=== PATIENT | male | born 1950 | race Caucasian/White ===

== ENCOUNTER 2018-11-21 09:31 | Observation (INO) | payer BC, MEDICARE ==
--- NOTE | 2018-11-21 09:58 | EDM.PDOC ---
ED HPI GENERAL MEDICAL PROBLEM - General Chief Complaint: Trauma Stated Complaint: VIA [facility] Time Seen by Provider: 11/21/18 09:40 Source of Information: Reports: Patient, EMS History Limitations: Reports: No Limitations - History of Present Illness INITIAL COMMENTS - FREE TEXT/NARRATIVE: 68-year-old male was trying to clean snow off the top of his ice house last evening when he fell injuring his right hip and pelvis. He was able to ambulate around his house with crutches last evening but could not bear any weight on the right leg. This morning he was in too much pain so called the ambulance. No other injury or complaints. Onset: Other (Roughly 12 hours ago, last evening) Location: Reports: Lower Extremity, Right Associated Symptoms: Reports: No Other Symptoms - Related Data Allergies Allergy/AdvReac Type Severity Reaction Status Date / Time No Known Allergies Allergy Verified 01/21/14 07:14 Home Meds: Home Meds Allopurinol [Zyloprim] 150 mg PO DAILY 01/21/14 [History] Multivitamin [Multi-Vitamin Daily] 1 each PO DAILY 01/21/14 [History] Nadolol [Naldol] 80 mg PO DAILY #30 tablet 01/24/14 [Rx] Past Medical History Cardiovascular History: Reports: Hypertension Other Cardiovascular History: Cardiac arrest Other Hematologic History: GI bleed - Infectious Disease History Infectious Disease History: Reports: Measles, Mumps - Past Surgical History Other HEENT Surgeries/Procedures: dentures Social & Family History - Tobacco Use Smoking Status *Q: Never Smoker - Caffeine Use Caffeine Use: Reports: Tea - Recreational Drug Use Recreational Drug Use: No Review of Systems - Review of Systems Review Of Systems: See Below Constitutional: Denies: Fever Respiratory: Reports: No Symptoms Cardiovascular: Reports: No Symptoms GI/Abdominal: Reports: No Symptoms Genitourinary: Reports: No Symptoms Skin: Denies: Bruising Neurological: Denies: Paresthesia ED EXAM, GENERAL - Physical Exam Exam: See Below Exam Limited By: No Limitations General Appearance: Alert, No Apparent Distress (Patient looks uncomfortable but not distressed. He did receive pain control in route via EMS) Eye Exam: Bilateral Eye: EOMI Neck: Supple Respiratory/Chest: No Respiratory Distress, Lungs Clear Cardiovascular: Regular Rate, Rhythm GI/Abdominal: Soft, Non-Tender, Distended Extremities: Other (Extremely painful in the right hip to any passive range of motion, with focal tenderness to palpation but no crepitus or significant deformity) Neurological: Alert, Oriented Skin Exam: Warm, Dry, Other (Posterior right hip and buttock area has significant ecchymosis and bruising, swelling typical of a hematoma) Course - Vital Signs Last Recorded V/S: Last Vital Signs Temp 97.6 F 11/21/18 13:56 Pulse 72 11/21/18 13:56 Resp 16 11/21/18 13:56 BP 148/42 H 11/21/18 13:56 Pulse Ox 99 11/21/18 13:56 - Orders/Labs/Meds Orders: Medication Orders Acetaminophen (Tylenol) 650 mg PO Q4H PRN PRN Reason: Pain (Mild 1-3)/fever Allopurinol (Zyloprim) 150 mg PO DAILY [facility] Morphine Sulfate (Morphine) 2 mg IVPUSH Q2H PRN PRN Reason: Pain (severe 7-10) Nadolol (Naldol) 80 mg PO DAILY [facility] Ondansetron HCl (Zofran Odt) 4 mg PO Q6H PRN PRN Reason: Nausea able to take PO Oxycodone HCl (Oxycodone) 5 mg PO Q4H PRN PRN Reason: Pain (moderate 4-6) Polyethylene Glycol (Miralax) 17 gm PO DAILY PRN PRN Reason: Constipation Senna/Docusate Sodium (Senna Plus) 1 tab PO BID PRN PRN Reason: Constipation Labs: Laboratory Tests 11/21/18 11/21/18 11/21/18 Range/Units 10:42 10:42 11:33 WBC 5.9 (4.5-11.0) K/uL RBC 2.05 L (4.30-5.90) M/uL Hgb 8.1 L D (12.0-15.0) g/dL Hct 23.3 L (40.0-54.0) % MCV 114 H (80-98) fL MCH 40 H (27-31) pg MCHC 35 (32-36) % Plt Count 52 L (150-400) K/uL Neut % (Auto) 57 (36-66) % Lymph % (Auto) 23 L (24-44) % [place] % (Auto) 15 H (2-6) % Eos % (Auto) 5 H (2-4) % Baso % (Auto) 1 (0-1) % PT (9.5-12.0) sec INR (0.80-1.20) Sodium 131 L (140-148) mmol/L Potassium 3.9 (3.6-5.2) mmol/L Chloride 100 (100-108) mmol/L Carbon Dioxide 22 (21-32) mmol/L Anion Gap 12.9 (5.0-14.0) mmol/L BUN 14 (7-18) mg/dL Creatinine 1.3 (0.8-1.3) mg/dL Est Cr Clr Drug Dosing 48.40 mL/min Estimated GFR (MDRD) 55 L (>60) Glucose 132 H (74-106) mg/dL Calcium 8.0 L D (8.5-10.1) mg/dL Total Bilirubin 3.2 H (0.2-1.0) mg/dL Direct Bilirubin 1.93 H (0.0-0.2) mg/dL Indirect Bilirubin 1.27 AST 37 (15-37) U/L ALT 24 (12-78) U/L Alkaline Phosphatase 127 H (46-116) U/L Total Protein 6.7 (6.4-8.2) g/dL Albumin 1.6 L (3.4-5.0) g/dL Globulin 5.1 H (2.3-3.5) g/dL Albumin/Globulin Ratio 0.3 L (1.2-2.2) 11/21/18 Range/Units 11:35 WBC (4.5-11.0) K/uL RBC (4.30-5.90) M/uL Hgb (12.0-15.0) g/dL Hct (40.0-54.0) % MCV (80-98) fL MCH (27-31) pg MCHC (32-36) % Plt Count (150-400) K/uL Neut % (Auto) (36-66) % Lymph % (Auto) (24-44) % [place] % (Auto) (2-6) % Eos % (Auto) (2-4) % Baso % (Auto) (0-1) % PT 16.7 H (9.5-12.0) sec INR 1.56 H (0.80-1.20) Sodium (140-148) mmol/L Potassium (3.6-5.2) mmol/L Chloride (100-108) mmol/L Carbon Dioxide (21-32) mmol/L Anion Gap (5.0-14.0) mmol/L BUN (7-18) mg/dL Creatinine (0.8-1.3) mg/dL Est Cr Clr Drug Dosing mL/min Estimated GFR (MDRD) (>60) Glucose (74-106) mg/dL Calcium (8.5-10.1) mg/dL Total Bilirubin (0.2-1.0) mg/dL Direct Bilirubin (0.0-0.2) mg/dL Indirect Bilirubin AST (15-37) U/L ALT (12-78) U/L Alkaline Phosphatase (46-116) U/L Total Protein (6.4-8.2) g/dL Albumin (3.4-5.0) g/dL Globulin (2.3-3.5) g/dL Albumin/Globulin Ratio (1.2-2.2) Meds: Medications Generic Name Dose Route Start Last Admin Trade Name Freq PRN Reason Stop Dose Admin Acetaminophen 650 mg 11/21/18 13:19 Tylenol PO Q4H PRN Pain (Mild 1-3)/fever Allopurinol 150 mg 11/22/18 09:00 Zyloprim PO DAILY [facility] Morphine Sulfate 2 mg 11/21/18 13:19 Morphine IVPUSH Q2H PRN Pain (severe 7-10) Nadolol 80 mg 11/22/18 09:00 Naldol PO DAILY [facility] Ondansetron HCl 4 mg 11/21/18 13:19 Zofran Odt PO Q6H PRN Nausea able to take PO Oxycodone HCl 5 mg 11/21/18 13:19 Oxycodone PO Q4H PRN Pain (moderate 4-6) Polyethylene Glycol 17 gm 11/21/18 13:19 Miralax PO DAILY PRN Constipation Senna/Docusate Sodium 1 tab 11/21/18 13:19 Senna Plus PO BID PRN Constipation Discontinued Medications Generic Name Dose Route Start Last Admin Trade Name Freq PRN Reason Stop Dose Admin Influenza Virus Vaccine 180 mcg 11/21/18 10:00 11/21/18 10:05 Fluzone High-Dose 2018-19 Syringe IM 11/21/18 10:01 180 mcg ONETIME ONE Administration - Re-Assessments/Exams Free Text/Narrative Re-Assessment/Exam: 11/21/18 09:57 CT of the pelvis and right hip were obtained. 11/21/18 11:34 CT shows significant contusion and a small hematoma over the right buttock and hip area. No fracture. Hemoglobin returned only 8.1. This is compared to a level near 12 10 months ago. There is also ascites on the CT scan, which correlates with his history of cirrhosis. He admits that he still drinks but only "one or 2 beers a day". Discussed his condition with Dr. Mcmillan, he agreed to interview the patient to consider hospitalization for pain control, rehabilitation and possible anemia workup. Departure - Departure Time of Disposition: 13:59 Disposition: Admitted As Inpatient 65 Condition: Fair Clinical Impression: Cirrhosis of liver, Anemia due to blood loss Hematoma of right lower extremity Qualifiers: Encounter type: initial encounter Qualified Code(s): S80.11XA - Contusion of right lower leg, initial encounter - Discharge Information
--- NOTE | 2018-11-21 11:20 | CT ---
Pelvis wo Cont CLINICAL HISTORY: Fall, hematoma Technique: Axial tomographic images are obtained through the pelvis with no contrast enhancement. Auto dosage reduction and iterative reconstruction techniques employed. FINDINGS: No fracture is identified within the hips or pelvis. There is some mild acetabular spurring. Articular surfaces are smooth. There is ecchymosis in the right lateral and posterior subcutaneous tissues. There is some thickening of the gluteus which is likely related to hematoma. Patient has a moderate amount of fluid in the pelvis and lower abdomen which is likely ascites IMPRESSION: No pelvic or hip fracture identified Right posterior lateral ecchymosis and hematoma Moderate abdominal pelvic ascites
--- NOTE | 2018-11-21 12:21 | PCM.HP ---
H&P History of Present Illness - General Date of Service: 11/21/18 Admit Problem/Dx: Admission Diagnosis/Problem Admission Diagnosis/Problem Hematoma of right lower extremity Source of Information: Patient, Provider History Limitations: Reports: No Limitations - History of Present Illness Initial Comments - Free Text/Narative: Leroy presents to the emergency room with severe right buttocks pain. He reports that he slipped and fell yesterday while he was shoveling snow and landed on his right buttocks. Initially he had moderate sharp pain in the right buttocks and hip area but was able to crawl to the house and with the help of his brother get up to the chair. He didn't take anything to make the pain better. Any sort of movement or pressure on the posterolateral part of his hip causes pain. He was able to get around using crutches last night but when he woke up this morning his pain was so severe that he could not get out of bed so he called an ambulance. He is not aware of any other injuries from the fall and does not endorse back pain, chest pain, abdominal pain or other joint pain. He did not hit his head. No complaints of shortness of breath. No fevers. he does report abdominal distention for about 2 months as well as lower extremity edema for 2 months after an episode of nausea with vomiting and diarrhea. Workup in the emergency room revealed bruising and hematoma involving the right gluteus muscle. There is no evidence for hip or pelvic fracture. Patient is not able to bear any weight and is not safe for outpatient management at this time. Also noted during the emergency room workup was cirrhosis with ascites as well as elevated bilirubin and anemia with a hemoglobin of 8.1. - Related Data Allergies/Adverse Reactions: Allergies Allergy/AdvReac Type Severity Reaction Status Date / Time No Known Allergies Allergy Verified 01/21/14 07:14 Home Medications: Home Meds Allopurinol [Zyloprim] 150 mg PO DAILY 01/21/14 [History] Multivitamin [Multi-Vitamin Daily] 1 each PO DAILY 01/21/14 [History] Nadolol [Naldol] 80 mg PO DAILY #30 tablet 01/24/14 [Rx] Past Medical History Cardiovascular History: Reports: Hypertension Other Cardiovascular History: Cardiac arrest Other Hematologic History: GI bleed - Infectious Disease History Infectious Disease History: Reports: Measles, Mumps - Past Surgical History Other HEENT Surgeries/Procedures: dentures Social & Family History - Family History GI: Denies: Cirrhosis - Tobacco Use Smoking Status *Q: Never Smoker - Caffeine Use Caffeine Use: Reports: Tea - Alcohol Use Alcohol Use History: Yes Days Per Week of Alcohol Use: 1 Days Per Week of Alcohol Use Comment: 1 Number of Drinks Per Day: 1 Total Drinks Per Week: 1 - Recreational Drug Use Recreational Drug Use: No H&P Review of Systems - Review of Systems: Review Of Systems: See Below Free Text/Narrative: A complete 12 point review of systems was obtained. Pertinent positives and negatives are noted in the history of present illness. All other systems were reviewed and were negative except as noted. Exam - Exam Exam: See Below - Vital Signs Vital Signs: Last Vital Signs Temp 36.7 C 11/21/18 09:32 Pulse 76 11/21/18 09:32 Resp 16 11/21/18 09:32 BP 164/73 H 11/21/18 09:32 Pulse Ox 95 11/21/18 09:32 Weight: 72.575 kg - Exam Quality Assessment: No: Supplemental Oxygen General: Alert, Oriented, Cooperative. No: Mild Distress HEENT: Conjunctiva Clear, Mucosa Moist & [place]. No: Scleral Icterus Neck: Supple, Trachea Midline. No: Lymphadenopathy Lungs: Clear to Auscultation, Normal Respiratory Effort Cardiovascular: Regular Rate, Regular Rhythm. No: Systolic Murmur GI/Abdominal Exam: Normal Bowel Sounds, Soft, Non-Tender, No Mass, Distended. No: Hepatomegaly (Male) Exam: Circumcised, Other (one testicle ). No: Scrotal Swelling, Testicular Mass Back Exam: No: Full Range of Motion Extremities: Pedal Edema. No: Increased Warmth Skin: Warm, Dry, Ecchymosis (right buttocks ) Neuro Extensive - Mental Status: Alert, Oriented x3, Nl Response to Commands Neuro Extensive - Motor, Sensory, Reflexes: CN II-XII Intact. No: Dysarthria, Abnormal Motor, Tremor Psychiatric: Alert, Normal Affect - Patient Data Lab Results Last 24 hrs: Laboratory Results - last 24 hr 11/21/18 11/21/18 11/21/18 Range/Units 10:42 10:42 11:33 WBC 5.9 (4.5-11.0) K/uL RBC 2.05 L (4.30-5.90) M/uL Hgb 8.1 L D (12.0-15.0) g/dL Hct 23.3 L (40.0-54.0) % MCV 114 H (80-98) fL MCH 40 H (27-31) pg MCHC 35 (32-36) % Plt Count 52 L (150-400) K/uL Neut % (Auto) 57 (36-66) % Lymph % (Auto) 23 L (24-44) % [place] % (Auto) 15 H (2-6) % Eos % (Auto) 5 H (2-4) % Baso % (Auto) 1 (0-1) % PT (9.5-12.0) sec INR (0.80-1.20) Sodium 131 L (140-148) mmol/L Potassium 3.9 (3.6-5.2) mmol/L Chloride 100 (100-108) mmol/L Carbon Dioxide 22 (21-32) mmol/L Anion Gap 12.9 (5.0-14.0) mmol/L BUN 14 (7-18) mg/dL Creatinine 1.3 (0.8-1.3) mg/dL Est Cr Clr Drug Dosing 48.40 mL/min Estimated GFR (MDRD) 55 L (>60) Glucose 132 H (74-106) mg/dL Calcium 8.0 L D (8.5-10.1) mg/dL Total Bilirubin 3.2 H (0.2-1.0) mg/dL Direct Bilirubin 1.93 H (0.0-0.2) mg/dL Indirect Bilirubin 1.27 AST 37 (15-37) U/L ALT 24 (12-78) U/L Alkaline Phosphatase 127 H (46-116) U/L Total Protein 6.7 (6.4-8.2) g/dL Albumin 1.6 L (3.4-5.0) g/dL Globulin 5.1 H (2.3-3.5) g/dL Albumin/Globulin Ratio 0.3 L (1.2-2.2) 11/21/18 Range/Units 11:35 WBC (4.5-11.0) K/uL RBC (4.30-5.90) M/uL Hgb (12.0-15.0) g/dL Hct (40.0-54.0) % MCV (80-98) fL MCH (27-31) pg MCHC (32-36) % Plt Count (150-400) K/uL Neut % (Auto) (36-66) % Lymph % (Auto) (24-44) % [place] % (Auto) (2-6) % Eos % (Auto) (2-4) % Baso % (Auto) (0-1) % PT 16.7 H (9.5-12.0) sec INR 1.56 H (0.80-1.20) Sodium (140-148) mmol/L Potassium (3.6-5.2) mmol/L Chloride (100-108) mmol/L Carbon Dioxide (21-32) mmol/L Anion Gap (5.0-14.0) mmol/L BUN (7-18) mg/dL Creatinine (0.8-1.3) mg/dL Est Cr Clr Drug Dosing mL/min Estimated GFR (MDRD) (>60) Glucose (74-106) mg/dL Calcium (8.5-10.1) mg/dL Total Bilirubin (0.2-1.0) mg/dL Direct Bilirubin (0.0-0.2) mg/dL Indirect Bilirubin AST (15-37) U/L ALT (12-78) U/L Alkaline Phosphatase (46-116) U/L Total Protein (6.4-8.2) g/dL Albumin (3.4-5.0) g/dL Globulin (2.3-3.5) g/dL Albumin/Globulin Ratio (1.2-2.2) Result Diagrams: 11/21/18 10:42 11/21/18 10:42 Imaging Impressions Last 24 hrs: CT pelvis - images personally reviewed - there is swelling and hematoma present in the right gluteus. No pelvic or hip fracture. *Q Meaningful Use (ADM) - VTE *Q VTE Pharmacological Contraindications *Q: Thrombocytopenia - VTE Risk Assess *Q Each Risk Factor Represents 1 Point: Swollen Legs, Current, Obesity ( BMI > 25 kg/m2) Total Score 1 Point Risk Factors: 2 Each Risk Factor Represents 2 Points: Age 60 - 74 Years Total Score 2 Point Risk Factors: 2 Each Risk Factor Represents 3 Points: None Total Score 3 Point Risk Factors: 0 Each Risk Factor Represents 5 Points: None Total Score 5 Point Risk Factors: 0 Venous Thromboembolism Risk Factor Score *Q: 4 - Problem List (1) Hematoma of right lower extremity SNOMED Code(s): 390592798 ICD Code: S80.11XA - CONTUSION OF RIGHT LOWER LEG, INITIAL ENCOUNTER Status : Acute Current Visit: Yes Qualifiers: Encounter type: initial encounter Qualified Code(s): S80.11XA - Contusion of right lower leg, initial encounter (2) Macrocytic anemia SNOMED Code(s): 46167110 ICD Code: D53.9 - NUTRITIONAL ANEMIA, UNSPECIFIED Status: Acute Current Visit: Yes (3) Cirrhosis of liver SNOMED Code(s): 94336359 ICD Code: K74.60 - UNSPECIFIED CIRRHOSIS OF LIVER Status: Chronic Priority: Medium Current Visit: Yes Problem List Initiated/Reviewed/Updated: Yes Orders Last 24hrs: Active Orders 24 hr Category Date Time Status Patient Status Manage Transfer [TRANSFER] Routine ADT 11/21/18 12:08 Ordered Resuscitation Status Routine Resus Stat 11/21/18 12:09 Ordered Assessment/Plan Comment:: ASSESSMENT AND PLAN - Fall with right hip pain/gluteus hematoma - mechanical fall, no other injuries. No fracture but CT did show hematoma of gluteus. Unable to bear weight and not safe for outpatient management. Lives alone and has 7 steps into the house. -alternate heat and ice -acetaminophen for mild pain -oxycodone for moderate pain -PT in the morning Macrocytic anemia - I suspect this is related to anemia of chronic disease with cirrhosis but occult GI bleeding possible. patient does not report any melena and has not had hematemesis or hematochezia. Most recent level was about 3 years ago and it was 11. patient does not seem to have any symptoms from the low hemoglobin suggesting it was a slow decline. -Check iron, ferritin, B-12 -Repeat hemoglobin in the morning Cirrhosis - likely secondary to alcohol use. Patient has a history of consistent and fairly heavy use but has been cutting down. He noticed abdominal distention about 2 months ago after an episode of what he calls the "flu". This was described as an episode of vomiting and diarrhea that lasted several days. INR is elevated. He has moderate ascites and thrombocytopenia. He would benefit from diuretics once he is moving better. -hepatitis panel -Consider diuretics once he is moving better Maintenance issues - - DVT prophylaxis - mechanical with thrombocytopenia - GI prophylaxis - PPI - Nutrition - low sodium - [place] catheter - not indicated CODE STATUS - full code Admission justification - patient will be referred to observation status for pain control Disposition - I would anticipate discharge to home after the hospital stay Primary care physician - Gaurav Mcmillan M.D.
[2018-11-21] MEDS ORDERED: Polyethylene Glycol 3350 Powder 17 GM Packet PO PRN (13:19)
[2018-11-21] MEDS ORDERED: Ondansetron 4 MG Tab.DIS PO PRN (13:19)
[2018-11-21] MEDS ORDERED: oxyCODONE 5 MG Tab PO PRN (13:19)
[2018-11-21] MEDS ORDERED: Morphine 2 MG/ML Syringe IVPUSH PRN (13:19)
[2018-11-21] MEDS: Acetaminophen 325 MG Tab PO PRN (16:14)
[2018-11-22] MEDS: Acetaminophen 325 MG Tab PO PRN ×2 (08:21→20:18)
[2018-11-22] MEDS: Allopurinol 300 MG Tab PO SCH (08:22)
--- NOTE | 2018-11-22 11:43 | PCM.PN ---
- General Info Date of Service: 11/22/18 Subjective Update: There were no acute events overnight. The patient continues to report moderately severe pain at the right buttocks and thigh. He thinks the pain is a little better today but he is not moving quite as well. Bruise has enlarged and extended distally some. Hemoglobin did dip down to 7.4 and he will be receiving 1 unit of blood via transfusion. No change in abdominal distention or lower extremity edema. Iron slightly low and significant elevation of ferritin. Functional Status: Reports: Tolerating Diet, Ambulating - Review of Systems Musculoskeletal: Reports: Leg Pain Skin: Reports: Bruising - Patient Data Vitals - Most Recent: Last Vital Signs Temp 36.1 C 11/22/18 11:10 Pulse 67 11/22/18 11:10 Resp 16 11/22/18 11:10 BP 122/47 L 11/22/18 11:10 Pulse Ox 97 11/22/18 11:00 Weight - Most Recent: 72.575 kg I&O - Last 24 Hours: Intake & Output 11/21/18 11/22/18 11/22/18 22:59 06:59 14:59 Intake Total 240 480 Balance 240 480 Lab Results Last 24 Hours: Laboratory Results - last 24 hr 11/21/18 11/21/18 11/22/18 Range/Units 11:33 11:35 05:07 WBC (4.5-11.0) K/uL RBC (4.30-5.90) M/uL Hgb (12.0-15.0) g/dL Hct (40.0-54.0) % MCV (80-98) fL MCH (27-31) pg MCHC (32-36) % Plt Count (150-400) K/uL PT 16.7 H (9.5-12.0) sec INR 1.56 H (0.80-1.20) Iron 63 L (65-175) ug/dL TIBC 124 L (250-450) ug/dl % Saturation 51 (20-55) % Ferritin (8-388) ng/ml Total Bilirubin 3.2 H (0.2-1.0) mg/dL Direct Bilirubin 1.93 H (0.0-0.2) mg/dL Indirect Bilirubin 1.27 AST 37 (15-37) U/L ALT 24 (12-78) U/L Alkaline Phosphatase 127 H (46-116) U/L Total Protein 6.7 (6.4-8.2) g/dL Albumin 1.6 L (3.4-5.0) g/dL Globulin 5.1 H (2.3-3.5) g/dL Albumin/Globulin Ratio 0.3 L (1.2-2.2) Vitamin B12 (193-986) pg/ml Blood Type Gel Antibody Screen Crossmatch 11/22/18 11/22/18 11/22/18 Range/Units 05:07 05:11 08:55 WBC 5.4 (4.5-11.0) K/uL RBC 1.88 L (4.30-5.90) M/uL Hgb 7.4 L (12.0-15.0) g/dL Hct 21.6 L (40.0-54.0) % MCV 115 H (80-98) fL MCH 39 H (27-31) pg MCHC 34 (32-36) % Plt Count 48 L (150-400) K/uL PT (9.5-12.0) sec INR (0.80-1.20) Iron (65-175) ug/dL TIBC (250-450) ug/dl % Saturation (20-55) % Ferritin 1453 H (8-388) ng/ml Total Bilirubin (0.2-1.0) mg/dL Direct Bilirubin (0.0-0.2) mg/dL Indirect Bilirubin AST (15-37) U/L ALT (12-78) U/L Alkaline Phosphatase (46-116) U/L Total Protein (6.4-8.2) g/dL Albumin (3.4-5.0) g/dL Globulin (2.3-3.5) g/dL Albumin/Globulin Ratio (1.2-2.2) Vitamin B12 1521 H (193-986) pg/ml Blood Type O POSITIVE Gel Antibody Screen Negative Crossmatch See Detail Med Orders - Current: Current Medications Acetaminophen (Tylenol) 650 mg PO Q4H PRN PRN Reason: Pain (Mild 1-3)/fever Last Admin: 11/22/18 08:21 Dose: 650 mg Allopurinol (Zyloprim) 150 mg PO DAILY [facility] Last Admin: 11/22/18 08:22 Dose: 150 mg Morphine Sulfate (Morphine) 2 mg IVPUSH Q2H PRN PRN Reason: Pain (severe 7-10) Nadolol (Naldol) 80 mg PO DAILY [facility]IA Last Admin: 11/22/18 08:22 Dose: 80 mg Ondansetron HCl (Zofran Odt) 4 mg PO Q6H PRN PRN Reason: Nausea able to take PO Oxycodone HCl (Oxycodone) 5 mg PO Q4H PRN PRN Reason: Pain (moderate 4-6) Polyethylene Glycol (Miralax) 17 gm PO DAILY PRN PRN Reason: Constipation Senna/Docusate Sodium (Senna Plus) 1 tab PO BID PRN PRN Reason: Constipation Discontinued Medications Influenza Virus Vaccine (Fluzone High-Dose Syringe) 180 mcg IM ONETIME ONE Stop: 11/21/18 10:01 Last Admin: 11/21/18 10:05 Dose: 180 mcg - Exam Quality Assessment: No: Supplemental Oxygen General: Alert, Oriented, Cooperative, No Acute Distress Lungs: Normal Respiratory Effort GI/Abdominal Exam: Soft, Distended Extremities: Pedal Edema Skin: Warm, Dry, Ecchymosis (large bruise right lateral and posterior hip ) Psy/Mental Status: Alert, Normal Affect - Problem List & Annotations (1) Hematoma of right lower extremity SNOMED Code(s): 103125139 Code(s): S80.11XA - CONTUSION OF RIGHT LOWER LEG, INITIAL ENCOUNTER Status : Acute Current Visit: Yes Qualifiers: Encounter type: initial encounter Qualified Code(s): S80.11XA - Contusion of right lower leg, initial encounter (2) Macrocytic anemia SNOMED Code(s): 67418203 Code(s): D53.9 - NUTRITIONAL ANEMIA, UNSPECIFIED Status: Acute Current Visit: Yes (3) Cirrhosis of liver SNOMED Code(s): 15036815 Code(s): K74.60 - UNSPECIFIED CIRRHOSIS OF LIVER Status: Chronic Priority : Medium Current Visit: Yes - Problem List Review Problem List Initiated/Reviewed/Updated: Yes - My Orders Last 24 Hours: My Active Orders 11/21/18 12:09 Resuscitation Status Routine 11/21/18 13:19 Patient Status [ADT] Routine Antiembolic Devices [RC] .Routine Cooling Warming Measures [RC] ASDIRECTED Intake and Output [RC] QSHIFT Notify Provider Vital Signs [RC] ASDIRECTED Oxygen Therapy [RC] PRN Up With Assistance [RC] ASDIRECTED VTE/DVT Education [RC] Per Unit Routine Vital Signs [RC] Q4H PT Evaluation and Treatment [CONS] Routine Acetaminophen [Tylenol] 650 mg PO Q4H PRN Docusate Sodium/Sennosides [Senna Plus] 1 tab PO BID PRN Morphine 2 mg IVPUSH Q2H PRN Ondansetron [Zofran ODT] 4 mg PO Q6H PRN Polyethylene Glycol 3350 [MiraLAX] 17 gm PO DAILY PRN oxyCODONE 5 mg PO Q4H PRN Antiembolic Hose [OM.PC] Per Unit Routine Heat Therapy [OM.PC] Routine Ice Therapy [OM.PC] Routine Pressure Reduction Mattress [OM.PC] Routine VTE Pharmacological Contraindications [AST] Per Unit Routine 11/21/18 Lunch 2 Gram Sodium Diet [DIET] 11/22/18 05:07 HEPATITIS PANEL (4) AM 11/22/18 08:44 Transfuse Red Blood Cells [COMM] Routine 11/22/18 09:00 Allopurinol [Zyloprim] 150 mg PO DAILY Nadolol [Naldol] 80 mg PO DAILY 11/23/18 05:00 CBC W/O DIFF,HEMOGRAM [HEME] Timed (1) COMPREHENSIVE METABOLIC PN,CMP [CHEM] Timed - Plan Plan:: ASSESSMENT AND PLAN - Fall with right hip pain/gluteus hematoma - mechanical fall, no other injuries. Pain a little better but still not moving great. Patient does not have any interest in going to the care home. He was counseled this may take a couple of weeks to resolve. -alternate heat and ice -acetaminophen for mild pain -oxycodone for moderate pain -Physical therapy Macrocytic anemia, anemia of chronic disease - B-12 level normal. Ferritin significantly elevated. Iron levels slightly low. I believe the low hemoglobin is related to his chronic liver disease. He did receive 1 unit of blood today. Still no evidence for bleeding. -Repeat hemoglobin in the morning Cirrhosis - likely secondary to chronic alcohol use. He would benefit from diuretics but is unable to move well enough and starting them now would likely cause a significant increase in his are ready troubling pain. -hepatitis panel pending -Consider diuretics once he is moving better Maintenance issues - - DVT prophylaxis - mechanical with thrombocytopenia - GI prophylaxis - PPI - Nutrition - low sodium - [place] catheter - not indicated CODE STATUS - full code Admission justification - patient will be referred to observation status for pain control Disposition - I would anticipate discharge to home with home care after the hospital stay Primary care physician - Gaurav Mcmillan M.D.
[2018-11-23 07:23] VITALS: BP 109/49
[2018-11-23] MEDS ORDERED: Potassium Chloride 20 MEQ Tab.ER PO ONE (09:00)
[2018-11-23] MEDS: Allopurinol 300 MG Tab PO SCH (09:03)
[2018-11-23 09:18] LABS: HBSAG SCREEN Negative (Negative); HEP A AB, IGM Negative (Negative); HEP B CORE AB, IGM Negative (Negative); HEP C VIRUS AB 0.1 s/co ratio (0.0-0.9)
--- NOTE | 2018-11-23 10:47 | PCM.DCSUM1 ---
Discharge Summary - Hospital Course Brief History: 68-year-old male with history of cirrhosis who presented with severe right buttocks pain/hip pain after a fall. Workup in the emergency room revealed a large right buttocks hematoma and he was admitted for pain control. Diagnosis: Stroke: No - Discharge Data Discharge Date: 11/23/18 Discharge Disposition: Home, W Home Health Agency 06 Condition: Good - Discharge Diagnosis/Problem(s) (1) Hematoma of right lower extremity SNOMED Code(s): 997823711 ICD Code: S80.11XA - CONTUSION OF RIGHT LOWER LEG, INITIAL ENCOUNTER Status : Acute Qualifiers: Encounter type: initial encounter Qualified Code(s): S80.11XA - Contusion of right lower leg, initial encounter (2) Macrocytic anemia SNOMED Code(s): 33581932 ICD Code: D53.9 - NUTRITIONAL ANEMIA, UNSPECIFIED Status: Acute (3) Cirrhosis of liver SNOMED Code(s): 44306274 ICD Code: K74.60 - UNSPECIFIED CIRRHOSIS OF LIVER Status: Chronic Priority: Medium (4) Hypokalemia SNOMED Code(s): 52299429 ICD Code: E87.6 - HYPOKALEMIA Status: Acute - Patient Summary/Data Consults: Consultations 11/21/18 13:19 PT Evaluation and Treatment [CONS] Routine Please Evaluate and Treat. PT Reason for Consult: Ambulation Special Instructions: right buttocks hematoma This query below is only for informational purposes and is not editable. Labs Pending at D/C: Hepatitis panel Hospital Course: Leroy presented to the emergency room with right buttocks and hip pain after a fall the day before presentation. Workup in the emergency room included laboratory studies and a CT scan. Laboratory studies were remarkable for anemia with a hemoglobin of 8.1 as well as elevated bilirubin. The CT scan did not show evidence for fracture of the hip or pelvis but did show a hematoma in the right gluteus. CT scan also showed moderate ascites. Patient was admitted to the hospital for pain management and physical therapy because he was unable to bear weight due to the severity of the pain. Started him on acetaminophen and oxycodone to help with the pain as well as heat and ice. He worked with physical therapy the morning after admission though was not able to do much because of the severity of the pain. His hemoglobin was also noted to have dropped the morning after admission and he did receive 1 unit of blood via transfusion for hemoglobin of 7.4. Throughout the next 24 hours he made significant improvement with regards to pain control and ability to get in and out of bed as well as ambulate. His pain has been well-controlled using acetaminophen for the most part with only rare use of oxycodone. On the morning of discharge she worked with physical therapy and was fairly easily able to do 7 stairs, which he would be required to do to get into his house. He feels comfortable with this level of pain control and thinks that he can manage at home at this time. He was agreeable to home health for nursing and physical therapy assistance. As mentioned the CT scan did show moderate ascites. The patient also had moderate lower extremity edema. He has a known history of cirrhosis but things seem to be worsening. I did not initiate diuretics during the hospital stay because of his greatly impaired mobility. We did discuss cirrhosis and the importance of alcohol abstinence. I strongly suspect that his cirrhosis is related to long-standing and fairly heavy alcohol use though he has been drinking less recently. Did send off labs for hepatitis panel but these are pending at the time of discharge. Ferritin level was quite high at 1400 and iron level on the low side of normal which fits with anemia of chronic disease. I did send him home with a prescription for diuretics including furosemide and spironolactone which she will start tomorrow. I encouraged early follow-up and he may need a gastroenterology referral for assistance in managing his chronic liver disease. I strongly encouraged him to avoid all alcohol. - Patient Instructions Diet: Regular Diet as Tolerated Activity: As Tolerated Driving: Do Not Drive (if taking pain pills ) Showering/Bathing: May Shower Notify Provider of: Fever, Increased Pain, Nausea and/or Vomiting Other/Special Instructions: 1. You were in the hospital for observation and pain control after a fall resulted in a hematoma of your right thigh and buttocks. To help control the pain at home you should take acetaminophen 650 mg every 4 hours as needed. Please do not exceed 5 doses in a 24-hour period. If you have more than mild pain I have provided a prescription for oxycodone which you can use every 4 hours as needed for moderate or severe pain. You should continue to use the heating pad every 2-4 hours to help reduce the discomfort with the hematoma. 2. The CT of your pelvis revealed that you have fluid inside your abdomen called ascites. This ascites is present because of cirrhosis (scarring of the liver). I believe the low hemoglobin level is also related to chronic inflammation because of the cirrhosis. To help reduce the swelling I would recommend that you start taking furosemide 20 mg once daily and spironolactone 25 mg once daily. These will slowly help to reduce the swelling in the abdomen and your legs. 3. Follow up with Gaurav Case either next Wednesday or the Wednesday after. You should have him recheck your kidney function and potassium at that time. 4. I have placed a referral to home health care to provide physical therapy and nursing services which will help ease your transition to home. 5. Seek medical attention if you develop fever greater than 101, you have severe pain in your abdomen that cannot be controlled with your pills at home or if you have profound weakness. - Discharge Plan *PRESCRIPTION DRUG MONITORING PROGRAM REVIEWED*: Not Applicable *COPY OF PRESCRIPTION DRUG MONITORING REPORT IN PATIENT NORA: Not Applicable Prescriptions/Med Rec: Acetaminophen [Tylenol] 650 mg PO Q4H PRN #200 tablet PRN Reason: Pain (Mild 1-3)/fever Furosemide 20 mg PO DAILY #30 tablet oxyCODONE 5 mg PO Q4H PRN #12 tablet PRN Reason: Pain (Moderate 4-6) Spironolactone [Aldactone] 25 mg PO DAILY #30 tab Home Medications: Home Meds Allopurinol [Zyloprim] 150 mg PO DAILY 01/21/14 [History] Multivitamin [Multi-Vitamin Daily] 1 each PO DAILY 01/21/14 [History] Nadolol [Naldol] 80 mg PO DAILY #30 tablet 01/24/14 [Rx] Acetaminophen [Tylenol] 650 mg PO Q4H PRN #200 tablet 11/23/18 [Rx] Furosemide 20 mg PO DAILY #30 tablet 11/23/18 [Rx] Spironolactone [Aldactone] 25 mg PO DAILY #30 tab 11/23/18 [Rx] oxyCODONE 5 mg PO Q4H PRN #12 tablet 11/23/18 [Rx] Oxygen Therapy Mode: Room Air Patient Handouts: Cirrhosis, Spironolactone tablets, Hematoma, [id number] Referrals: Gaurav Case, LITERACY EDUCATION PROFESSOR [Nurse Practitioner] - (f/u in about 10-14 days - f/u hospital stay for hematoma, diurectic initiation ) - Discharge Summary/Plan Comment DC Time >30 min.: Yes (40 - setting up home care) - Patient Data Vitals - Most Recent: Last Vital Signs Temp 36.3 C 11/23/18 07:23 Pulse 80 11/23/18 09:02 Resp 16 11/23/18 07:23 BP 109/49 L 11/23/18 09:02 Pulse Ox 95 11/23/18 07:23 Weight - Most Recent: 72.575 kg I&O - Last 24 hours: Intake & Output 11/22/18 11/23/18 11/23/18 22:59 06:59 14:59 Intake Total 500 500 Output Total 400 650 Balance 100 -150 Lab Results - Last 24 hrs: Laboratory Results - last 24 hr 11/22/18 11/22/18 11/23/18 Range/Units 05:07 08:55 05:00 WBC 5.0 (4.5-11.0) K/uL RBC 2.29 L (4.30-5.90) M/uL Hgb 8.4 L (12.0-15.0) g/dL Hct 24.9 L (40.0-54.0) % MCV 109 H (80-98) fL MCH 37 H (27-31) pg MCHC 34 (32-36) % Plt Count 44 L (150-400) K/uL Sodium (140-148) mmol/L Potassium (3.6-5.2) mmol/L Chloride (100-108) mmol/L Carbon Dioxide (21-32) mmol/L Anion Gap (5.0-14.0) mmol/L BUN (7-18) mg/dL Creatinine (0.8-1.3) mg/dL Est Cr Clr Drug Dosing mL/min Estimated GFR (MDRD) (>60) Glucose (74-106) mg/dL Calcium (8.5-10.1) mg/dL Total Bilirubin (0.2-1.0) mg/dL AST (15-37) U/L ALT (12-78) U/L Alkaline Phosphatase (46-116) U/L Total Protein (6.4-8.2) g/dL Albumin (3.4-5.0) g/dL Globulin (2.3-3.5) g/dL Albumin/Globulin Ratio (1.2-2.2) Hepatitis A IgM Ab Negative (Negative) Hep Bs Antigen Negative (Negative) Hep B Core IgM Ab Negative (Negative) Hepatitis C Antibody 0.1 (0.0-0.9) s/co ratio Crossmatch See Detail 11/23/18 Range/Units 05:00 WBC (4.5-11.0) K/uL RBC (4.30-5.90) M/uL Hgb (12.0-15.0) g/dL Hct (40.0-54.0) % MCV (80-98) fL MCH (27-31) pg MCHC (32-36) % Plt Count (150-400) K/uL Sodium 135 L (140-148) mmol/L Potassium 3.4 L (3.6-5.2) mmol/L Chloride 103 (100-108) mmol/L Carbon Dioxide 24 (21-32) mmol/L Anion Gap 11.4 (5.0-14.0) mmol/L BUN 18 (7-18) mg/dL Creatinine 1.4 H (0.8-1.3) mg/dL Est Cr Clr Drug Dosing 45.17 mL/min Estimated GFR (MDRD) 50 L (>60) Glucose 112 H (74-106) mg/dL Calcium 7.7 L (8.5-10.1) mg/dL Total Bilirubin 2.8 H (0.2-1.0) mg/dL AST 28 (15-37) U/L ALT 20 (12-78) U/L Alkaline Phosphatase 116 (46-116) U/L Total Protein 6.0 L (6.4-8.2) g/dL Albumin 1.5 L (3.4-5.0) g/dL Globulin 4.5 H (2.3-3.5) g/dL Albumin/Globulin Ratio 0.3 L (1.2-2.2) Hepatitis A IgM Ab (Negative) Hep Bs Antigen (Negative) Hep B Core IgM Ab (Negative) Hepatitis C Antibody (0.0-0.9) s/co ratio Crossmatch Med Orders - Current: Current Medications Acetaminophen (Tylenol) 650 mg PO Q4H PRN PRN Reason: Pain (Mild 1-3)/fever Last Admin: 11/22/18 20:18 Dose: 650 mg Allopurinol (Zyloprim) 150 mg PO DAILY [facility] Last Admin: 11/23/18 09:03 Dose: 150 mg Morphine Sulfate (Morphine) 2 mg IVPUSH Q2H PRN PRN Reason: Pain (severe 7-10) Nadolol (Naldol) 80 mg PO DAILY [facility] Last Admin: 11/23/18 09:02 Dose: 80 mg Ondansetron HCl (Zofran Odt) 4 mg PO Q6H PRN PRN Reason: Nausea able to take PO Oxycodone HCl (Oxycodone) 5 mg PO Q4H PRN PRN Reason: Pain (moderate 4-6) Last Admin: 11/23/18 09:02 Dose: 5 mg Polyethylene Glycol (Miralax) 17 gm PO DAILY PRN PRN Reason: Constipation Senna/Docusate Sodium (Senna Plus) 1 tab PO BID PRN PRN Reason: Constipation Discontinued Medications Influenza Virus Vaccine (Fluzone High-Dose Syringe) 180 mcg IM ONETIME ONE Stop: 11/21/18 10:01 Last Admin: 11/21/18 10:05 Dose: 180 mcg Potassium Chloride (Klor-Con M20) 40 meq PO ONETIME ONE Stop: 11/23/18 09:01 Last Admin: 11/23/18 09:03 Dose: 40 meq - Exam Quality Assessment: Denies: Supplemental Oxygen General: Reports: Alert, Oriented, Cooperative, No Acute Distress Lungs: Reports: Normal Respiratory Effort GI/Abdominal Exam: Soft, Distended Extremities: Pedal Edema Psy/Mental Status: Reports: Alert, Normal Affect *Q Meaningful Use (DIS) - VTE *Q VTE Pharmacological Contraindications *Q: Thrombocytopenia
== END 2018-11-23 11:45 | disposition home health service (06) ==
LOC: JP.ED 09:31 → JP.MS 12:08 → EEVIPCON 12:08
PROVIDERS: ADMIT Internal Medicine; ATTEND Internal Medicine
DX: S30.0XXA Contusion of lower back and pelvis, initial encounter (principal); S70.11XA Contusion of right thigh, initial encounter; D50.0 Iron deficiency anemia secondary to blood loss (chronic); D53.9 Nutritional anemia, unspecified; K74.60 Unspecified cirrhosis of liver; I10 Essential (primary) hypertension; E87.6 Hypokalemia; Z79.899 Other long term (current) drug therapy; W00.2XXA Other fall from one level to another due to ice and snow, initial encounter; Y93.H1 Activity, digging, shoveling and raking
CPT/HCPCS: 36415; 36430; 72192; 80048; 80053; 80074; 80076; 82607; 82728; 83550; 85025; 85027; 85610; 86850; 86900; 86901; 86920; 86922; 90471; 90662; 96372; 97110; 97162; 97530; 97535; 99285; A9270; G0378; P9016

== ENCOUNTER 2019-01-06 20:45 | Emergency (ER) | payer MEDICARE, BC ==
--- NOTE | 2019-01-06 21:00 | EDM.PDOC ---
ED HPI GENERAL MEDICAL PROBLEM - General Chief Complaint: Gastrointestinal Problem Stated Complaint: ILLNESS Time Seen by Provider: 01/06/19 21:15 Source of Information: Reports: Patient, EMS History Limitations: Reports: No Limitations - History of Present Illness INITIAL COMMENTS - FREE TEXT/NARRATIVE: 68-year-old male with a history of ulcers, and alcoholic cirrhosis presents with maroon stools and hematemesis today. He had one beer today, insists he has not drank for the last several days otherwise. He has no pain other than lingering pain from his fall 1-1/2 months ago. No fever or chills. Denies shortness of breath. He admits he does bruise very easily. Onset: Sudden Duration: Hour(s): (Symptoms just for the last 12 hours, last emesis was 5 hours ago but maroon and bloody stools are increasing.) Associated Symptoms: Reports: No Other Symptoms denies pain Pain Score (Numeric/FACES): 0 - Related Data Allergies Allergy/AdvReac Type Severity Reaction Status Date / Time lisinopril Allergy Cough Verified 01/06/19 20:48 Home Meds: Home Meds Allopurinol [Zyloprim] 150 mg PO DAILY 01/21/14 [History] Multivitamin [Multi-Vitamin Daily] 1 each PO DAILY 01/21/14 [History] Nadolol [Naldol] 80 mg PO DAILY #30 tablet 01/24/14 [Rx] Furosemide 20 mg PO DAILY #30 tablet 11/23/18 [Rx] Naproxen Sodium [Aleve] 220 mg PO ASDIRECTED 01/06/19 [History] Past Medical History Cardiovascular History: Reports: Hypertension Other Cardiovascular History: Cardiac arrest Musculoskeletal History: Reports: Other (See Below) Other Musculoskeletal History: 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, although reports no challenges since that time Endocrine/Metabolic History: Reports: Other (See Below) Other Endocrine/Metabolic History: Liver cirrohsis Hematologic History: Reports: Other (See Below) Other Hematologic History: GI bleed - Infectious Disease History Infectious Disease History: Reports: Measles, Mumps - Past Surgical History Other HEENT Surgeries/Procedures: dentures Social & Family History - Caffeine Use Caffeine Use: Reports: Tea ED ROS GENERAL - Review of Systems Review Of Systems: See Below Constitutional: Denies: Fever Respiratory: Denies: Shortness of Breath, Cough Cardiovascular: Denies: Chest Pain GI/Abdominal: Reports: Hematochezia. Denies: Abdominal Pain : Reports: No Symptoms Musculoskeletal: Reports: Other (Pelvic and low back pain persistent from a fall 6 weeks ago) Skin: Reports: Pallor Neurological: Reports: No Symptoms ED EXAM, GENERAL - Physical Exam Exam: See Below Exam Limited By: No Limitations General Appearance: Alert, No Apparent Distress Eye Exam: Bilateral Eye: Other (Conjunctiva somewhat pale, no obvious jaundice) Head: Atraumatic Respiratory/Chest: No Respiratory Distress, Lungs Clear Cardiovascular: Regular Rate, Rhythm GI/Abdominal: Distended, Hepatomegaly. No: Rebound, Tender Rectal (Males) Exam: Bloody Stool, Tenderness. No: Hemorrhoids Extremities: Pedal Edema (Patient has significant symmetric lower extremity pitting edema) Psychiatric: Normal Affect, Normal Mood Skin Exam: Warm, Dry Course - Vital Signs Last Recorded V/S: Last Vital Signs Temp 95.5 F 01/06/19 23:19 Pulse 79 01/06/19 23:19 Resp 15 01/06/19 23:19 BP 114/53 L 01/06/19 23:19 Pulse Ox 100 01/06/19 23:19 - Orders/Labs/Meds Labs: Laboratory Tests 01/06/19 01/06/19 01/06/19 Range/Units 21:24 21:24 21:24 WBC 7.3 (4.5-11.0) K/uL RBC 1.89 L (4.30-5.90) M/uL Hgb 7.0 L (12.0-15.0) g/dL Hct 21.4 L (40.0-54.0) % MCV 113 H (80-98) fL MCH 37 H (27-31) pg MCHC 33 (32-36) % Plt Count 66 L (150-400) K/uL Neut % (Auto) 60 (36-66) % Lymph % (Auto) 21 L (24-44) % [place] % (Auto) 11 H (2-6) % Eos % (Auto) 7 H (2-4) % Baso % (Auto) 1 (0-1) % PT 17.1 H (9.5-12.0) sec INR 1.60 H (0.80-1.20) Sodium 130 L (140-148) mmol/L Potassium 5.7 H (3.6-5.2) mmol/L Chloride 99 L (100-108) mmol/L Carbon Dioxide 24 (21-32) mmol/L Anion Gap 12.7 (5.0-14.0) mmol/L BUN 22 H (7-18) mg/dL Creatinine 1.3 (0.8-1.3) mg/dL Est Cr Clr Drug Dosing 48.40 mL/min Estimated GFR (MDRD) 55 L (>60) Glucose 139 H (74-106) mg/dL Calcium 7.6 L (8.5-10.1) mg/dL Total Bilirubin 1.4 H (0.2-1.0) mg/dL AST 26 (15-37) U/L ALT 11 L (12-78) U/L Alkaline Phosphatase 162 H (46-116) U/L Total Protein 5.8 L (6.4-8.2) g/dL Albumin 1.6 L (3.4-5.0) g/dL Globulin 4.2 H (2.3-3.5) g/dL Albumin/Globulin Ratio 0.4 L (1.2-2.2) Ethyl Alcohol mg/dL 01/06/19 Range/Units 21:24 WBC (4.5-11.0) K/uL RBC (4.30-5.90) M/uL Hgb (12.0-15.0) g/dL Hct (40.0-54.0) % MCV (80-98) fL MCH (27-31) pg MCHC (32-36) % Plt Count (150-400) K/uL Neut % (Auto) (36-66) % Lymph % (Auto) (24-44) % [place] % (Auto) (2-6) % Eos % (Auto) (2-4) % Baso % (Auto) (0-1) % PT (9.5-12.0) sec INR (0.80-1.20) Sodium (140-148) mmol/L Potassium (3.6-5.2) mmol/L Chloride (100-108) mmol/L Carbon Dioxide (21-32) mmol/L Anion Gap (5.0-14.0) mmol/L BUN (7-18) mg/dL Creatinine (0.8-1.3) mg/dL Est Cr Clr Drug Dosing mL/min Estimated GFR (MDRD) (>60) Glucose (74-106) mg/dL Calcium (8.5-10.1) mg/dL Total Bilirubin (0.2-1.0) mg/dL AST (15-37) U/L ALT (12-78) U/L Alkaline Phosphatase (46-116) U/L Total Protein (6.4-8.2) g/dL Albumin (3.4-5.0) g/dL Globulin (2.3-3.5) g/dL Albumin/Globulin Ratio (1.2-2.2) Ethyl Alcohol 3 mg/dL Meds: Medications Discontinued Medications Generic Name Dose Route Start Last Admin Trade Name Freq PRN Reason Stop Dose Admin Sodium Chloride 1,000 mls @ 250 mls/hr 01/06/19 21:30 01/06/19 22:00 Normal Saline IV 250 mls/hr ASDIRECTED GENIA Administration Octreotide Acetate 500 mcg/ 501.5 mls @ 50.15 mls/hr 01/06/19 23:00 Sodium Chloride IV Q10H GENIA 50 MCG/HR Octreotide Acetate 500 mcg/ 500 mls @ 50 mls/hr 01/06/19 23:00 01/06/19 23:16 Sodium Chloride IV 50 mcg/hr Q10H GENIA 50 mls/hr Administration 50 MCG/HR Octreotide Acetate 50 mcg 01/06/19 22:50 01/06/19 23:01 Sandostatin IVPUSH 01/06/19 22:51 50 mcg ONETIME ONE Administration Pantoprazole Sodium 40 mg 01/06/19 21:49 01/06/19 22:00 Protonix Iv IVPUSH 01/06/19 21:50 40 mg ONETIME ONE Administration - Re-Assessments/Exams Free Text/Narrative Re-Assessment/Exam: 01/06/19 21:29 CBC, CMP, INR and EtOH were obtained. 01/06/19 21:53 IV was started with normal saline at 250 mL an hour and patient was given 40 mg of IV Protonix. 01/06/19 22:24 Hemoglobin returned at 7.0, INR 1.6. EtOH 0.003. Patient had no additional hematemesis while in the emergency room. An IV was started, he was given 40 mg of IV Protonix and after consultation with the hospitalist service in [place], an octeotride drip was started, and he'll be transferred urgently to [email or web address] 01/06/19 23:04 Due to periods of hypotension and increased dizziness, 1 unit of RBCs was started prior to discharge. Patient will be flown to [place]. 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 Dr. Greene has accepted patient in transfer.
[2019-01-06] MEDS ORDERED: Sodium Chloride 0.9% 1,000 ML IV SCH (21:30)
[2019-01-06] MEDS ORDERED: Pantoprazole 40 MG Vial IVPUSH ONE (21:49)
[2019-01-06] MEDS ORDERED: Octreotide 100 MCG/ML SDV IVPUSH ONE (22:50)
[2019-01-06] MEDS ORDERED: Octreotide 500 MCG in Sodium Chloride 0.9% 497.5 ML IV SCH (23:00)
[2019-01-06] MEDS ORDERED: Octreotide 500 MCG in Sodium Chloride 0.9% 499 ML IV SCH (23:00)
[2019-01-06 23:20] VITALS: BP 114/53
== END 2019-01-06 23:33 | disposition other institution (70) ==
LOC: JP.ED 20:45
DX: K70.30 Alcoholic cirrhosis of liver without ascites (principal); I85.11 Secondary esophageal varices with bleeding; D50.0 Iron deficiency anemia secondary to blood loss (chronic); I10 Essential (primary) hypertension; Z79.899 Other long term (current) drug therapy; Z88.8 Allergy status to other drugs, medicaments and biological substances
CPT/HCPCS: 36415; 80053; 85025; 85610; 96361; 96365; 96375; 96376; 99285; C9113; G0480; J2354; J7030; J7040